=== PATIENT | female | born 1980 | race Caucasian/White ===

== ENCOUNTER 2023-03-18 15:15 | Outpatient (REF) | payer OTHER, SELFPAY ==
--- NOTE | 2023-03-18 14:00 | PAPFT_PTH ---
PATIENT: Leticia Kim LOC: [facility] U#:[id number] AGE/SX: 42/F ROOM: RE03/18/[address]: Marycarmen Galvez DO : 1980 BED: DIS: 03/18/2023 SPEC #: [id number] RECD: 03/18/23 18:13 STATUS: SAMY REQ #: [id number] WENDY: 03/18/23 14:[address]: Marycarmen Galvez DEPT: [facility] Cytology RECD BY: Janis Lofton Tissues: 1 - CX/ENDOCX FOR PAP SMEARS Procedures: PAP THIN PREP/UVM Screening HPV DNA PROBE Comments: [id number] (HPV 16 & 18/45) (CHLAMYDIA/GC)
[2023-03-19 15:33] LABS: Chlamydia Result Negative (Negative); GC Result Negative (Negative)
== END 2023-03-18 15:16 | disposition home or self-care (01) ==
LOC: LBN 15:15
PROVIDERS: Visit Provider Obstetrics & Gynecology
DX: Z11.3 Encounter for screening for infections with a predominantly sexual mode of transmission (principal); Z12.4 Encounter for screening for malignant neoplasm of cervix; Z11.51 Encounter for screening for human papillomavirus (HPV); R87.810 Cervical high risk human papillomavirus (HPV) DNA test positive; R10.2 Pelvic and perineal pain
CPT/HCPCS: 87491; 87591; 88142; 87480; 87510; 87624; 87660

== ENCOUNTER 2023-04-01 14:17 | Outpatient (REF) | payer OTHER, SELFPAY ==
--- NOTE | 2023-04-01 13:10 | CER_PTH ---
PATIENT: Leticia Kim LOC: [facility] U#:[id number] AGE/SX: 43/F ROOM: RE04/01/[address]: Marycarmen Galvez DO : 1980 BED: DIS: 04/01/2023 SPEC #: [id number] RECD: 04/01/23 16:00 STATUS: SAMY RE #: [id number] WENDY: 04/01/23 13:[address]: Marycarmen Galvez DEPT: Surgical Specimen RECD BY: Janis Lofton Tissues: 1 - CERVICAL BIOPSY 2 - ENDOCERVICAL BX/CURRETTE Procedures: GROSS AND MICRO LEVEL 4 Comments: [id number]
== END 2023-04-01 14:18 | disposition home or self-care (01) ==
LOC: LBN 14:17
PROVIDERS: Visit Provider Obstetrics & Gynecology
DX: R87.810 Cervical high risk human papillomavirus (HPV) DNA test positive (principal); N72 Inflammatory disease of cervix uteri; N88.8 Other specified noninflammatory disorders of cervix uteri
CPT/HCPCS: 88305

== ENCOUNTER 2025-01-05 01:27 | Outpatient (CLI) | payer OTHER, SELFPAY ==
--- NOTE | 2025-01-05 | DI.MAMMO_ITS ---
Exam(s) MAMMO DIAGNOSTIC BI EXAM: MAMMO DIAGNOSTIC BI CLINICAL HISTORY: H/o lt breast calcifications, R92.1, 6-mo f/u, [id number] TECHNIQUE: Bilateral full field digital CC and MLO mammographic images were obtained with 3D tomosyn thesis and utilizing computer aided detection (CAD). COMPARISON: Available for comparison. FINDINGS: Masses/Architectural Distortion: None seen. Microcalcifications: No suspicious pleomorphic-type are seen. The calcifications are stable in the le ft breast. Skin Thickening/Nipple Retraction: None. IMPRESSION: 1. No significant interval change with no specific features of malignancy noted. 2. Unless there is more urgent need, screening mammography is recommended, as per [place] [employer] guidelines. 3. Findings were discussed with the patient on the date of the examination. BI-RADS Category 2 - Benign Findings Breast Density - Category C - Heterogeneously dense Breast density category C or D implies that the patient has dense breast tissue. Dense breast tissue is very common and is not abnormal but dense breast tissue can make it harder to find cancer on a ma mmogram. Also, dense breast tissue may increase their breast cancer risk. This information about the result of the mammogram report was provided to the patient to raise their awareness. Use this report when you speak with the patient about their risks for breast cancer, which includes their family hist ory. At that time, you may recommend for more screening tests (Ultrasound or MRI) as they might be us eful based on their risk. A negative radiographic report should not delay biopsy if a dominant or clinically suspicious mass is present. Up to ten percent of cancers are not identified on mammography. A negative report may reinforce clinical impression. Adenosis and dense breasts may obscure an underlying neoplasm. False positive reports average 6 to 10%. Patient will receive a letter notifying them of these results.
== END 2025-01-05 01:47 ==
LOC: DI 01:27
PROVIDERS: Visit Provider Internal Medicine
DX: Z12.31 Encounter for screening mammogram for malignant neoplasm of breast (principal); R92.1 Mammographic calcification found on diagnostic imaging of breast
CPT/HCPCS: 77062; 77066; G0279